=== PATIENT | female | born 1940 | race Caucasian/White ===

== ENCOUNTER 2024-12-22 02:15 | Emergency (ER) | payer MEDICARE, OTHER ==
[~2024-12-22] VITALS: Ht 170.2 cm; Wt 90.0 kg
[~2024-12-22 02:15] MED LIST: ASPIRIN EC81 MG PO; DILAUDID4 MG PO; FISH OIL CONC1000 MG PO; FISH OIL300 MG PO; LIPITOR10 MG PO; MIRALAX17 GM PO; OMEPRAZOLE20 MG PO; SIMETHICONE80 MG PO; VITAMIN D2000 UNIT PO
[2024-12-22] MEDS ORDERED: OXYMETAZOLINE HCL 30 ML BTL NAS ONE (03:30)
[2024-12-22 03:36] VITALS: BP 131/78
== END 2024-12-22 03:38 | disposition home or self-care (01) ==
LOC: ED 02:15
DX: R04.0 Epistaxis (principal); Z96.642 Presence of left artificial hip joint; Z88.5 Allergy status to narcotic agent; Z79.899 Other long term (current) drug therapy
CPT/HCPCS: 99283